=== PATIENT | female | born 1990 | race African-American/Black ===

== ENCOUNTER 2017-03-03 21:17 | Emergency (ER) | payer OTHER ==
--- NOTE | ~2017-03-03 | EKG ---
PATIENT: KATHIE DAWKINS UNIT #: [id number] Ventricular Rate: 56 BPM Atrial Rate: 56 BPM P-R Interval: 178 ms QRS Duration: 70 ms Q-T Interval: 470 ms QTC Calculation(Bezet): 453 ms P Midway: 0 degrees Calculated R Midway: 34 degrees Calculated T Midway: -5 degrees Diagnosis Line: Sinus bradycardia with sinus arrhythmia Diagnosis Line: Nonspecific T wave abnormality Diagnosis Line: Abnormal ECG Diagnosis Line: No previous ECGs available Diagnosis Line: Confirmed by COREY DAMON MD ([id number]) on 03/09/2017 Diagnosis Line: 2:27:40 PM INTERPRETING MD: NELSON MULTANI
--- NOTE | ~2017-03-03 | CR72 ---
[facility] A Service of [facility] & [facility] RADIOLOGY TEXT RESULTS PATIENT: KATHIE DAWKINS LOCATION: [facility] : [birth year] UNIT #: [id number] AGE: [address]: Imelda Sarmiento MD SEX: F ORDER DR: [id number] [facility] [address] [place], [place] [address] [id number] MR#: [id number] Acc #: [id number] NAME: KATHIE DAWKINS. : 1990 SEX: F STUDY DATE/TIME: 03/03/2017 22:25 UNIT: [facility] ROOM: STUDY DESCRIPTION: CR Chest Single View Portable Attending Physician: Imelda Sarmiento M.D. Ordering Physician: Imelda Sarmiento M.D. Primary Care Physician: No Primary Care Physician MEDICAL IMAGING REPORT This report is preliminary unless electronic signature is present EXAM Portable chest INDICATION Chest pain since yesterday. PROCEDURE Frontal view chest. COMPARISON 12/17/2016 FINDINGS Heart size is unchanged. No dense consolidation, visible pleural fluid, or pneumothorax. IMPRESSION No active process. No change from 12/17/2016. Dictated by... Vinay Powers M.D. THIS IS AN ELECTRONICALLY VERIFIED REPORT Vinay Powers M.D. at 03/09/2017 3:04 PM LOS/anh TD: 03/04/2017 13:03 JOB #: [id number] MEDICAL IMAGING REPORT Page 1 of 1 COPY
[~2017-03-03 21:17] MED LIST: ASPIRIN PO; CELEXA PO
[2017-03-03 21:58] LABS: POC - CKMB <1.0 ng/mL (0.0-7.9); POC - TROPONIN <0.05 ng/mL (<=0.05)
[2017-03-03 22:20] LABS: BASOPHIL% 0.5 % (0-2.5); EOSINOPHIL# 0.1 X10e3 (0-0.7); EOSINOPHIL% 0.9 % (0.0-7.0); HEMATOCRIT 45.2 % (35.0-45.0); HEMOGLOBIN 14.7 gm/dL (12.0-16.0); LYMPHOCYTE# 4.6 X10e3 (1.0-3.5); LYMPHOCYTE% 62.5 % (17.0-45.0); MEAN CELL VOLUME 84.3 FL (83-96); MEAN CORPUSCULAR HEMOGLOBIN 27.3 PG (28-34); MEAN CORPUSCULAR HGB CONC 32.5 g/dL (30-36); MEAN PLATELET VOLUME 9.5 FL (6.5-11.5); MONOCYTE# 0.5 X10e3 (0-1.0); MONOCYTE% 6.7 % (3.0-12.0); NEUTROPHIL# 2.2 X10e3 (1.5-7.1); NEUTROPHIL% 29.4 % (40-75); PLATELET COUNT 231 X10e3 (140-420); RED BLOOD COUNT 5.37 X10e (3.90-5.30); RED CELL DISTRIBUTION WIDTH 14.1 % (11.0-15.5); WHITE BLOOD COUNT 7.3 X10e3 (4.0-10.5)
[2017-03-03 22:21] LABS: DIFF IND YES
[2017-03-03 22:31] LABS: INR 0.9; PARTIAL THROMBOPLASTIN TIME 29.4 SECONDS (23.5-31.3); PROTHROMBIN TIME (PATIENT) 10.2 SECONDS (10.0-11.7)
[2017-03-03 22:42] LABS: ALBUMIN SERUM 4.2 g/dL (3.5-5.0); BILIRUBIN, DIRECT 0.1 mg/dL (0.0-0.2); BILIRUBIN,INDIRECT 0.4 mg/dL (0.0-0.9); BILIRUBIN,TOTAL 0.5 mg/dL (0.2-2.0); CALCIUM SERUM 9.3 mg/dL (8.4-10.2); CREATININE SERUM 0.9 mg/dL (0.6-1.4); GLOM FILT RATE Estimated 101.6 mL/min (>60); POTASSIUM 3.7 mmol/L (3.5-5.1); PROTEIN TOTAL SERUM 8.2 g/dL (6.0-8.3)
[2017-03-03 22:58] LABS: PLATELET ESTIMATE NORMAL (NORMAL); RBC NORMAL YES
[2017-03-03 23:43] LABS: POC - CKMB <1.0 ng/mL (0.0-7.9); POC - TROPONIN <0.05 ng/mL (<=0.05)
== END 2017-03-04 | disposition home or self-care (01) ==
LOC: CED 21:17
PROVIDERS: Student in an Organized Health Care Education/Training Program
DX: K29.00 Acute gastritis without bleeding (principal); F17.200 Nicotine dependence, unspecified, uncomplicated; Z88.1 Allergy status to other antibiotic agents; Z79.899 Other long term (current) drug therapy
CPT/HCPCS: 36415; 71010; 80048; 80076; 82553; 83690; 84484; 84703; 85025; 85610; 85730; 93005; 96374; 96375; 99285; C9113; J2405